=== PATIENT | female | born 1970 | race Caucasian/White ===

== ENCOUNTER 2021-08-02 13:14 | Emergency (ER) | payer OTHER ==
[~2021-08-02] VITALS: Ht 152.4 cm; Wt 77.2 kg
[2021-08-02] MEDS ORDERED: KETOROLAC 15 MG/ML VIAL. IM ONE (14:30)
--- NOTE | 2021-08-02 15:21 | RAD ---
EXAM: CT Abdomen and Pelvis without IV contrast CLINICAL HISTORY: Left flank pain. COMPARISON: none TECHNIQUE: Helical CT of the abdomen and pelvis without intravenous contrast. Axial, coronal and sagi ttal reformatted images were generated. PQRS compliance statement - One or more of the following individualized dose reduction techniques wer e utilized for this study: 1. Automated exposure control 2. Adjustment of the mA and/or kV according to patient size 3. Use of iterative reconstruction technique FINDINGS: Lack of intravenous contrast limits evaluation of solid organs, vasculature, and lymph nodes. Lower chest: Lung bases are clear. Linear opacity lingula likely scarring/atelectasis. Abdomen and Pelvis: Hepatic hypoattenuation, fatty liver. Cholecystectomy clips are seen. No focal liver lesion. No bilia ry ductal dilatation. Pancreas, spleen and adrenal glands are unremarkable. Nonobstructing punctate r ight lower pole and left interpolar renal calculus. No hydronephrosis. No hydroureter. Appendix is normal. Moderate colonic stool content is seen. No small or large bowel dilatation. No kimber wel obstruction. A few colonic diverticula are seen. Bladder is unremarkable. Trace fat-containing periumbilical hernia is seen. Aorta is normal in calibe r. Degenerative changes of the lower lumbar spine. No aggressive osseous lesion. IMPRESSION: 1. No renal tract calculus. 2. Hepatic hypoattenuation, fatty liver. 3. A few colonic diverticula are seen. No evidence for diverticulitis. Moderate colonic stool conten t. No bowel obstruction. 4. Appendix is normal. 5. Trace fat-containing periumbilical hernia. Electronically signed by: Aramis Blackmon MD (08/02/2021 3:19 PM) [facility]
--- NOTE | 2021-08-02 15:28 | PHYS DOC ---
Past Medical History Additional Past Medical Histor: ADHD,KIDNEY STONES (MARY STOUT) Past Surgical History: Cholecystectomy, Additional Past Surgical Histo: LITHOTRIPSY (MARY STOUT) General Adult EDM: Chief Complaint: BACK PAIN OR INJURY HPI: HPI: Patient is a 51 year old female who presents with left-sided flank pain. Patient states over the past 3 days, she has had left-sided low back pain, bilateral suprapubic pain, dysuria without hematuria and feeling of incomplete voiding. Patient rates her back pain intermittent 6.5/10 that radiates to her shoulder. She reports she has had kidney stones in the past, and that this feels similar but not as intense. Additionally, she has had kidney infection treated inpatient about 5 years ago. Patient reports associated nausea and anorexia, however denies abdominal pain, vomiting, diarrhea, and constipation. Patient denies any trauma, injury or strain to her low back. Patient has no other complaints at this time. (MARY STOUT) Review of Systems: Review of Systems: Constitutional: See HPI Respiratory: Denies cough or shortness of breath. Cardiovascular: Denies chest pain or edema. GI: See HPI : See HPI Musculoskeletal: See HPI (MARY STOUT) Heart Score: C/O Chest Pain: No (MARY STOUT) Current Medications: Current Medications Medications (Trade) Dose Ordered Sig/Marvin Start Time Stop Time Status Last Admin Dose Admin Ketorolac Tromethamine (Toradol 15mg Vial) 15 mg 1X ONCE 08/02/21 14:30 08/02/21 14:53 DC 08/02/21 15:20 15 MG (MARY STOUT) Allergies: Allergies: Allergies Coded Allergies Type Severity Reaction Last Updated Verified cefazolin Allergy Severe ANAPHYLAXIS 08/02/21 Yes morphine Allergy Severe ANAPHYLAXIS 08/02/21 Yes (MARY STOUT) Physical Exam: PE: Constitutional: Well developed, well nourished, no acute distress, non-toxic appearance. Cardiovascular: Heart rate regular rhythm, no murmur. Lungs & Thorax: Bilateral breath sounds clear to auscultation. Abdomen: Bowel sounds normal, soft, no tenderness, no masses, no pulsatile masses. Skin: Warm, dry, no erythema, no rash. Back: No step-offs, no bony tenderness, no paraspinal tenderness, no CVA tenderness. Neurologic: Alert and oriented x3, normal motor function, normal sensory function, no focal deficits noted. (MARY STOUT) Current Patient Data: Labs: Laboratory Tests Test 08/02/21 13:45 Urine Collection Type Unknown Urine Color Yellow Urine Clarity Clear Urine pH 6.0 (<5.0-8.0) Urine Specific [place] 1.010 (1.000-1.030) Urine Protein Negative mg/dL (NEG-TRACE) Urine Glucose (UA) Negative mg/dL (NEG) Urine Ketones (Stick) Negative mg/dL (NEG) Urine Blood Negative (NEG) Urine Nitrite Negative (NEG) Urine Bilirubin Negative (NEG) Urine Urobilinogen Dipstick 0.2 mg/dL (0.2 mg/dL) Urine Leukocyte Esterase Negative (NEG) Urine RBC 0 /HPF (0-2) Urine WBC 0 /HPF (0-4) Urine Squamous Epithelial Cells Mod /LPF Urine Bacteria Moderate /HPF (0-FEW) Urine Mucus Mod /LPF Vital Signs: Vital Signs Date Time Temp Pulse Resp B/P (MAP) Pulse Ox O2 Delivery O2 Flow Rate FiO2 08/02/21 16:23 104 18 142/100 (114) 99 Room Air 08/02/21 13:50 98.1 114 16 154/91 (112) 97 Room Air 98.1 (MARY STOUT) Radiology/Procedures: Radiology/Procedures: PROCEDURE: CT ABDOMEN PELVIS WO CONTRAST EXAM: CT Abdomen and Pelvis without IV contrast CLINICAL HISTORY: Left flank pain. COMPARISON: none TECHNIQUE: Helical CT of the abdomen and pelvis without intravenous contrast. Axial, coronal and sagittal reformatted images were generated. PQRS compliance statement - One or more of the following individualized dose reduction techniques were utilized for this study: 1. Automated exposure control 2. Adjustment of the mA and/or kV according to patient size 3. Use of iterative reconstruction technique FINDINGS: Lack of intravenous contrast limits evaluation of solid organs, vasculature, and lymph nodes. Lower chest: Lung bases are clear. Linear opacity lingula likely scarring/atelectasis. Abdomen and Pelvis: Hepatic hypoattenuation, fatty liver. Cholecystectomy clips are seen. No focal liver lesion. No biliary ductal dilatation. Pancreas, spleen and adrenal glands are unremarkable. Nonobstructing punctate right lower pole and left interpolar renal calculus. No hydronephrosis. No hydroureter. Appendix is normal. Moderate colonic stool content is seen. No small or large bowel dilatation. No bowel obstruction. A few colonic diverticula are seen. Bladder is unremarkable. Trace fat-containing periumbilical hernia is seen. Aorta is normal in caliber. Degenerative changes of the lower lumbar spine. No aggressive osseous lesion. IMPRESSION: 1. No renal tract calculus. 2. Hepatic hypoattenuation, fatty liver. 3. A few colonic diverticula are seen. No evidence for diverticulitis. Moderate colonic stool content. No bowel obstruction. 4. Appendix is normal. 5. Trace fat-containing periumbilical hernia. Electronically signed by: Aramis Blackmon MD (08/02/2021 3:19 PM) [id number] (MARY STOUT) Course & Med Decision Making: Course & Med Decision Making Pertinent Labs and Imaging studies reviewed. (See chart for details) As patient has history of renal stones, CT plain abdomen pelvis will be ordered. Ketorolac provided for pain relief. CT does not show evidence of any renal stones and urine does not show signs of infection. Patient will be treated for also spasm and discharged home. Additionally, patient's blood pressure was elevated in the department. She understands that she should follow-up with her primary care provider regarding further evaluation. Patient understands and is agreeable to discharge plan. (MARY STOUT) Course & Med Decision Making I have reviewed and was available for consultation in the emergency department for this patient that was seen by midlevel provider. Urine culture was negative on 08/04/2021 Matthew Madrid DO (MATTHEW MADRID DO) Darrius Disclaimer: Darrius Disclaimer: This electronic medical record was generated, in whole or in part, using a voice recognition dictation system. (MARY STOUT) Departure Departure Impression: Primary Impression: Back pain Qualified Codes: M54.50 - Low back pain, unspecified Additional Impression: High blood pressure Disposition: HOME / SELF CARE / HOMELESS Condition: STABLE Referrals: NO PCP (PCP) Patient Instructions: Back Exercises, [id number], Back Pain, Adult, [id number] Additional Instructions: Your work-up today did not show any kidney stones or show signs of urinary tract infection. If your symptoms worsen or do not improve, please follow-up with your primary care provider or return to the emergency department. Please follow-up with your primary care provider regarding your elevated blood pressure in the department today. They can monitor your blood pressure and provide any further management if necessary. Scripts Orphenadrine Citrate (ORPHENADRINE CITRATE) 100 Mg Tablet.er 100 MG PO BID for 5 Days, #10 TAB.SR Prov: MARY STOUT 08/02/21 MARY STOUT Aug 02, 2021 15:28 MATTHEW MADRID DO Aug 05, 2021 06:50
[2021-08-02 15:35] LABS: BILIRUBIN,URINE NEGATIVE (NEG); CLARITY,URINE CLEAR; COLOR,URINE YELLOW; NITRITE,URINE NEGATIVE (NEG); PROTEIN,URINE NEGATIVE (NEG-TRACE); UROBILINOGEN,URINE 0.2 mg/dL (0.2 mg/dL)
[2021-08-02 15:44] LABS: BACTERIA,URINE MODERATE /HPF (0-FEW); RBC,URINE 0 /HPF (0-2); WBC,URINE 0 /HPF (0-4)
[2021-08-02] MEDS ORDERED: ORPH100T PO (16:19)
[2021-08-02 16:23] VITALS: BP 142/100
== END 2021-08-02 16:43 | disposition home or self-care (01) ==
LOC: ER 13:14
DX: M54.50 Low back pain, unspecified (principal); I10 Essential (primary) hypertension; R10.31 Right lower quadrant pain; R10.32 Left lower quadrant pain; R30.0 Dysuria; R31.9 Hematuria, unspecified; Z87.442 Personal history of urinary calculi; Z90.49 Acquired absence of other specified parts of digestive tract; Z98.890 Other specified postprocedural states; Z88.5 Allergy status to narcotic agent; Z88.8 Allergy status to other drugs, medicaments and biological substances
CPT/HCPCS: 74176; 81001; 87086; 96372; 99284; J1885